=== PATIENT | female | born 1975 | race Caucasian/White ===

== ENCOUNTER 2020-12-24 21:33 | Inpatient (IN) ==
[2020-12-24] MEDS ORDERED: 0.9 % Sodium Chloride 1,000 ML IVC SCH (22:30)
[2020-12-24 23:18] LABS: Basophils % 0.1 %; Hematocrit 39.5 % (35.3-44.9); Hemoglobin 12.5 g/dL (11.5-15.4); Immature Granulocytes % 0.4 % (0-4); Lymphocytes # 0.6 K/mcL (0.6-4.6); Lymphocytes % 8.8 %; Mean Corpuscular HGB Conc 31.6 g/dL (31.6-35.5); Mean Corpuscular Hemoglobin 26.5 pg (28.0-33.3); Mean Corpuscular Volume 83.7 fL (83.0-100.0); Mean Platelet Volume 10.7 fL (9.4-12.4); Monocytes # 0.4 K/mcL (0.0-1.3); Monocytes % 6.4 %; Neutrophils # 5.7 K/mcL (1.6-8.9); Platelet Count 292 K/mcL (140-400); Red Blood Count 4.72 M/mcL (3.82-4.97); Red Cell Distribution Width 14.1 % (11.5-14.5); Segmented Neutrophils % 84.3 %; White Blood Count 6.7 K/mcL (4.3-11.1)
[2020-12-24 23:22] LABS: Activated Partial Thrombo Time 25.8 Seconds (26.0-36.0); INR 1.2; Prothrombin Time 13.4 Seconds (9.4-12.1)
[2020-12-24 23:27] LABS: Troponin I < 0.03 ng/mL (< 0.04)
[2020-12-24 23:28] LABS: Alanine Aminotransferase 17 Units/L (7-52); Albumin 3.4 g/dL (3.5-5.7); Albumin/Globulin Ratio 1.1 (1.1-2.2); Alkaline Phosphatase 56 Units/L (34-104); Aspartate Amino Transferase 30 Units/L (13-39); BUN/Creatinine Ratio 19 (6-26); Bilirubin,Direct 0.1 mg/dL (0.0-0.2); Bilirubin,Indirect 0.2 mg/dL (0.0-1.0); Bilirubin,Total 0.3 mg/dL (0.3-1.0); Blood Urea Nitrogen 18 mg/dL (6-20); Calcium 7.8 mg/dL (8.6-10.3); Carbon Dioxide 26 mEq/L (23-29); Chloride 101 mEq/L (98-107); Globulin 3.2 g/dL (2.4-3.5); Glucose 225 mg/dL (70-105); Magnesium 1.9 mg/dL (1.6-2.6); Osmolality,Calculated 295 (280-300); Phosphorous 1.5 mg/dL (2.7-4.5); Potassium 3.8 mEq/L (3.5-5.1); Sodium 138 mEq/L (136-145); Total Protein 6.6 g/dL (6.4-8.9); eGFR For African Americans > 60 (> 60); eGFR For Non-African Americans > 60 (> 60)
[2020-12-25] MEDS ORDERED: Azithromycin 250 MG TABLET PO ONE (01:08)
[2020-12-25] MEDS ORDERED: Naloxone 0.4 MG/ML INJ IVP PRN ×2 (01:10→02:09)
[2020-12-25] MEDS ORDERED: D5% in Water 1,000 ML IVC PRN ×2 (01:13→02:09)
[2020-12-25] MEDS ORDERED: Dextrose Gel 15 GM/37.5 ML TUBE PO PRN ×4 (01:13→02:09)
[2020-12-25] MEDS ORDERED: *HR* Dextrose 50 % in Water (Vial) 50 ML VIAL IVP PRN ×2 (01:13→02:09)
[2020-12-25] MEDS ORDERED: 0.9 % Sodium Chloride 1,000 ML IVC SCH (02:09)
[2020-12-25] MEDS ORDERED: Insulin LISPRO 300 UNITS/3 ML VIAL SUBQ SCH ×5 (07:30→21:00)
[2020-12-25] MEDS ORDERED: Dexamethasone 4 MG/ML VIAL IVP SCH (08:00)
[2020-12-25] MEDS ORDERED: Dexamethasone 4 MG/ML VIAL IVP ONE ×2 (08:00→10:30)
[2020-12-25] MEDS: tiZANidine 4 MG TABLET PO SCH ×3 (08:53→20:55)
[2020-12-25] MEDS ORDERED: amLODIPine 5 MG TABLET PO SCH (09:00)
[2020-12-25] MEDS ORDERED: LIXISENATIDE SQ SCH (09:00)
[2020-12-25] MEDS ORDERED: Aspirin Enteric Coated 81 MG Tablet PO SCH (09:00)
[2020-12-25] MEDS ORDERED: INSULIN GLARGINE SQ SCH (09:00)
[2020-12-25] MEDS ORDERED: Fluticasone Propionate Nasal 50 MCG/SPRAY BOTTLE NS SCH (09:00)
[2020-12-25 10:00] LABS: Lactate Dehydrogenase 447 Units/L (140-271)
[2020-12-25] MEDS ORDERED: Ondansetron 4 MG/2 ML VIAL IVP PRN (10:04)
[2020-12-25 10:18] LABS: Ferritin 152 ng/mL (10-120)
[2020-12-25 10:29] LABS: Basophils % 0.2 %; Hematocrit 37.6 % (35.3-44.9); Hemoglobin 11.9 g/dL (11.5-15.4); Immature Granulocytes % 0.7 % (0-4); Lymphocytes # 0.5 K/mcL (0.6-4.6); Lymphocytes % 9.5 %; Mean Corpuscular HGB Conc 31.6 g/dL (31.6-35.5); Mean Corpuscular Hemoglobin 26.5 pg (28.0-33.3); Mean Corpuscular Volume 83.7 fL (83.0-100.0); Mean Platelet Volume 10.3 fL (9.4-12.4); Monocytes # 0.3 K/mcL (0.0-1.3); Monocytes % 4.5 %; Neutrophils # 4.7 K/mcL (1.6-8.9); Platelet Count 275 K/mcL (140-400); Red Blood Count 4.49 M/mcL (3.82-4.97); Red Cell Distribution Width 14.2 % (11.5-14.5); Segmented Neutrophils % 85.1 %; White Blood Count 5.5 K/mcL (4.3-11.1)
[2020-12-25 10:37] LABS: BUN/Creatinine Ratio 23 (6-26); Blood Urea Nitrogen 16 mg/dL (6-20); Calcium 7.6 mg/dL (8.6-10.3); Carbon Dioxide 24 mEq/L (23-29); Chloride 103 mEq/L (98-107); Glucose 343 mg/dL (70-105); Osmolality,Calculated 297 (280-300); Potassium 3.8 mEq/L (3.5-5.1); Sodium 136 mEq/L (136-145); eGFR For African Americans > 60 (> 60); eGFR For Non-African Americans > 60 (> 60)
[2020-12-25] MEDS ORDERED: levoFLOXacin 750 MG/150 ML 750 MG/150 ML BAG IVPB SCH (11:00)
[2020-12-25] MEDS: Benzonatate 100 MG CAPSULE PO PRN ×2 (11:22→20:55)
[2020-12-25] MEDS: Insulin LISPRO 300 UNITS/3 ML VIAL SUBQ SCH ×2 (11:28→17:14)
[2020-12-26] MEDS ORDERED: Furosemide 20 MG/2 ML VIAL IVP ONE (03:15)
[2020-12-26 03:31] VITALS: BP 123/80
[2020-12-26] MEDS ORDERED: *HR* Enoxaparin 40 MG/0.4 ML SYRINGE SQ SCH (06:00)
[2020-12-26] MEDS ORDERED: Isovue-370 500 ML BOTTLE IVP ONE (07:05)
[2020-12-26 07:56] LABS: Basophils % 0.1 %; Eosinophils % 0.1 %; Hematocrit 37.9 % (35.3-44.9); Hemoglobin 12.3 g/dL (11.5-15.4); Immature Granulocytes % 0.7 % (0-4); Lymphocytes # 0.7 K/mcL (0.6-4.6); Lymphocytes % 8.9 %; Mean Corpuscular HGB Conc 32.5 g/dL (31.6-35.5); Mean Corpuscular Hemoglobin 26.6 pg (28.0-33.3); Mean Platelet Volume 10.9 fL (9.4-12.4); Monocytes # 0.5 K/mcL (0.0-1.3); Monocytes % 6.2 %; Neutrophils # 6.2 K/mcL (1.6-8.9); Platelet Count 211 K/mcL (140-400); Red Blood Count 4.62 M/mcL (3.82-4.97); Red Cell Distribution Width 14.3 % (11.5-14.5); White Blood Count 7.4 K/mcL (4.3-11.1)
[2020-12-26 08:10] LABS: BUN/Creatinine Ratio 31 (6-26); Blood Urea Nitrogen 17 mg/dL (6-20); Calcium 7.6 mg/dL (8.6-10.3); Carbon Dioxide 25 mEq/L (23-29); Chloride 105 mEq/L (98-107); Glucose 233 mg/dL (70-105); Osmolality,Calculated 297 (280-300); Potassium 3.9 mEq/L (3.5-5.1); Sodium 139 mEq/L (136-145); eGFR For African Americans > 60 (> 60); eGFR For Non-African Americans > 60 (> 60)
[2020-12-26 08:45] LABS: Platelet Estimate Normal (Normal)
[2020-12-26] MEDS ORDERED: Insulin DETEMIR 100 UNIT/ML X5UNITS SUBQ SCH (09:00)
[2020-12-26] MEDS ORDERED: Dexamethasone Sodium Phos/PF 10 MG/ML VIAL IVP SCH (09:00)
== END 2020-12-26 09:21 | disposition short-term general hospital (02) | DRG 177 ==
LOC: INPPIK 21:33 → EMEROOPIK 21:33 → INPPIK 12-25 01:45
PROVIDERS: ADMIT Family Medicine; ATTEND Family Medicine